=== PATIENT | female | born 1975 | race Caucasian/White ===

== ENCOUNTER → 2021-03-09 | Outpatient (CLI) | payer BC ==
[~2021-03-09] MED LIST: AMBIEN10 MG PO; HYDROCODON-ACE1 EAC2 PO; MEGA BIOTIN10000 MCG PO; NAPROXEN 375 M375 MG GT; POLYETHYLENE G500 GM MC; SEROQUEL100 MG PO
[2021-03-09 08:39] LABS: HEMOGLOBIN 12.1 gm/dl (12.3-15.3); RED BLOOD COUNT 4.81 M/UL (4.00-5.10); WHITE BLOOD COUNT 7.2 K/UL (4.5-11.0)
== END ==
LOC: OPSV2 07:30
PROVIDERS: Obstetrics & Gynecology
DX: Z01.818 Encounter for other preprocedural examination (principal); N81.6 Rectocele
CPT/HCPCS: 36415; 81001; 85025; 93005

== ENCOUNTER 2021-03-11 08:03 | Inpatient (IN) | payer BC ==
[~2021-03-11] VITALS: Ht 177.8 cm; Wt 108.9 kg
[~2021-03-11 08:03] MED LIST changes: -HYDROCODON-ACE1 EAC2 PO; -NAPROXEN 375 M375 MG GT; -POLYETHYLENE G500 GM MC
[2021-03-11] MEDS ORDERED: NAPROXEN 375 M375 MG GT (14:05)
[2021-03-11] MEDS ORDERED: POLYETHYLENE G500 GM MC (14:05)
[2021-03-11] MEDS ORDERED: HYDROCODON-ACE1 EAC2 PO (14:05)
--- NOTE | 2021-03-12 05:54 | NUR ---
vanginal packing removed from patient as per md orders. small amount of dried blood noted on packing. patient tolerated well.
[2021-03-12 07:08] LABS: HEMOGLOBIN 9.7 gm/dl (12.3-15.3)
[2021-03-13 08:56] LABS: HEMOGLOBIN 10.2 gm/dl (12.3-15.3); RED BLOOD COUNT 4.04 M/UL (4.00-5.10); WHITE BLOOD COUNT 7.7 K/UL (4.5-11.0)
== END 2021-03-13 13:26 | disposition home or self-care (01) | DRG 747 ==
LOC: OR 08:03 → M/S 17:15 → OR 17:16 → M/S 17:16
PROVIDERS: ADMIT Obstetrics & Gynecology
PROC: 0WQN0ZZ Repair Female Perineum, Open Approach (ICD-10-PCS; principal; 2021-03-11 10:00)
PROC: 0TSD0ZZ Reposition Urethra, Open Approach (ICD-10-PCS; 2021-03-11 10:00)
PROC: 0UUG0JZ Supplement Vagina with Synthetic Substitute, Open Approach (ICD-10-PCS; 2021-03-11 10:00)
PROC: 0UJH4ZZ Inspection of Vagina and Cul-de-sac, Percutaneous Endoscopic Approach (ICD-10-PCS; 2021-03-11 10:00)
DX: N81.10 Cystocele, unspecified (principal); N81.89 Other female genital prolapse; N81.82 Incompetence or weakening of pubocervical tissue; D64.9 Anemia, unspecified; F32.9 Major depressive disorder, single episode, unspecified; F41.9 Anxiety disorder, unspecified; Z20.822 Contact with and (suspected) exposure to COVID-19; N36.42 Intrinsic sphincter deficiency (ISD); N39.3 Stress incontinence (female) (male); Z90.89 Acquired absence of other organs; Z88.8 Allergy status to other drugs, medicaments and biological substances; Z82.49 Family history of ischemic heart disease and other diseases of the circulatory system; Z98.84 Bariatric surgery status; Z98.890 Other specified postprocedural states; Z80.8 Family history of malignant neoplasm of other organs or systems; Z79.899 Other long term (current) drug therapy; Z90.710 Acquired absence of both cervix and uterus; Z90.722 Acquired absence of ovaries, bilateral; Z87.440 Personal history of urinary (tract) infections
CPT/HCPCS: 36415; 74018; 81001; 85014; 85018; 85025; 93005; C1763; C1769; C1771; J0690; J1100; J1170; J1885; J2001; J2250; J2405; J2704; J2710; J2795; J3010; J7120; U0003